=== PATIENT | male | born 1960 | race Caucasian/White ===

== ENCOUNTER → 2016-10-28 | Outpatient (CLI) | payer OTHER ==
[2016-10-28 13:38] LABS: CHOLESTEROL/HDL RATIO 6.7
== END | disposition home or self-care (01) ==
LOC: C.LABMFLN 09:21
PROVIDERS: ATTEND Family Medicine
DX: E78.5 Hyperlipidemia, unspecified (principal); M79.1 Myalgia; M60.9 Myositis, unspecified

== ENCOUNTER → 2016-11-10 | Outpatient (CLI) | payer OTHER | END | disposition home or self-care (01) | LOC: C.LABMFLN 13:29 | PROVIDERS: ATTEND Family Medicine | DX: Z12.5 Encounter for screening for malignant neoplasm of prostate (principal) ==